=== PATIENT | male | born 1985 | race Caucasian/White ===

== ENCOUNTER 2021-01-29 12:18 | Emergency (ER) | payer OTHER ==
[2021-01-29] MEDS ORDERED: ONDANSETRON 4 MG/2 ML VIAL IVP STA (12:43)
[2021-01-29] MEDS ORDERED: HYDROmorphone 1 MG/ML CARPUJECT IVP STA (12:43)
[2021-01-29] MEDS ORDERED: SODIUM CHLORIDE 0.9% 1,000 ML IV STA (12:43)
--- NOTE | 2021-01-29 12:44 | ED Physician Documentation ---
PD HPI ABD PAIN - Stated complaint Stated Complaint: ABD PX - Chief complaint Chief Complaint: Abd Pain - History obtained from History obtained from: Patient - Additional information Additional information: 35-year-old gentleman otherwise healthy but a daily drinker presents with 3 days of central and diffuse abdominal pain associated with vomiting and diarrhea. No blood from either end. No fevers. No sick contacts or recent travel. Review of Systems Ten Systems: 10 systems reviewed and negative Constitutional: denies: Fever, Chills Cardiac: denies: Chest pain / pressure, Palpitations Respiratory: denies: Dyspnea, Cough PD PAST MEDICAL HISTORY - Present Medications Home Medications: Ambulatory Orders Medication Instructions Recorded Confirmed Dicyclomine [Bentyl] 1 - 2 tab PO QID PRN #20 cap 01/29/21 Loperamide [Imodium] 2 mg PO QID PRN #10 cap 01/29/21 Ondansetron Odt [Zofran] 4 mg TL Q6H PRN #10 tablet 01/29/21 - Allergies Allergies/Adverse Reactions: Allergies Allergy/AdvReac Type Severity Reaction Status Date / Time No Known Drug Allergies Allergy Verified 01/29/21 12:28 PD ED PE NORMAL - Vitals Vital signs reviewed: Yes - General General: Alert and oriented X 3, No acute distress - HEENT HEENT: PERRL, EOMI - Neck Neck: Supple, no meningeal sign, No bony TTP - Cardiac Cardiac: RRR, No murmur - Respiratory Respiratory: No respiratory distress, Clear bilaterally - Abdomen Abdomen: Normal bowel sounds, Soft, Other (Mild diffuse tenderness that does not seem to localize) - Back Back: No CVA TTP, No spinal TTP - Derm Derm: Normal color, Warm and dry - Neuro Neuro: Alert and oriented X 3, Normal speech Results - Vitals Vitals: Vital Signs - 24 hr 01/29/21 01/29/21 12:23 14:03 Temperature 36.4 C L Heart Rate 109 H 83 Respiratory 16 18 Rate Blood Pressure 128/74 132/104 H O2 Saturation 98 97 Oxygen O2 Source Room air - Labs Labs: Laboratory Tests 01/29/21 01/29/21 12:47 12:47 WBC 4.2 L RBC 5.23 Hgb 15.5 Hct 46.8 MCV 89.5 MCH 29.6 MCHC 33.1 RDW 11.9 L Plt Count 145 MPV 10.3 Neut # (Auto) 2.1 Lymph # (Auto) 1.5 [place] # (Auto) 0.4 Eos # (Auto) 0.1 Baso # (Auto) 0.0 Absolute Nucleated RBC 0.00 Nucleated RBC % 0.0 Sodium 137 Potassium 3.3 L Chloride 99 L Carbon Dioxide 27 Anion Gap 11.0 BUN 7 Creatinine 0.8 Estimated GFR (MDRD) 111 Glucose 102 H Calcium 9.4 Total Bilirubin 0.9 AST 89 H ALT 77 H Alkaline Phosphatase 51 Total Protein 7.8 Albumin 4.5 Globulin 3.3 Albumin/Globulin Ratio 1.4 Lipase 41 PD MEDICAL DECISION MAKING - ED course ED course: 35-year-old gentleman presents with a 3-day episode of vomiting diarrhea and abdominal pain. Fairly benign exam and CT imaging with IV contrast demonstrates what is likely to be enteritis. He does have some evidence of alcoholic liver damage on imaging and labs and he understands the need to quit alcohol. Close watchful waiting was advised. Departure - Departure Disposition: 01 Home, Self Care Clinical Impression: Vomiting, Abdominal pain, Diarrhea Condition: Good Record reviewed to determine appropriate education?: Yes Instructions: ED Diarrhea Viral Prescriptions: Dicyclomine [Bentyl] 1 - 2 tab PO QID PRN #20 cap PRN Reason: Abdominal Pain Loperamide [Imodium] 2 mg PO QID PRN #10 cap PRN Reason: Diarrhea Ondansetron Odt [Zofran] 4 mg TL Q6H PRN #10 tablet PRN Reason: Nausea / Vomiting Comments: As discussed, your labs do demonstrate some liver inflammation. Please decrease or cease alcohol use. Otherwise the CAT scan just shows probably what is ca lled an enteritis which should resolve without specific treatment over the next couple of days. Return if worsening Or if not better over the next 48 to 72 hours. Discharge Date/Time: 01/29/21 14:15
[2021-01-29 12:53] LABS: BASOPHILS % (AUTO) 0.7 %; EOSINOPHILS # (AUTO) 0.1 10^3/uL (0.0-0.7); EOSINOPHILS % (AUTO) 2.9 %; HCT - HEMATOCRIT 46.8 % (42.0-52.0); HGB - HEMOGLOBIN 15.5 g/dL (14.0-18.0); LYMPHOCYTES # (AUTO) 1.5 10^3/uL (1.5-3.5); LYMPHOCYTES % (AUTO) 36.3 %; MEAN CORPUSCULAR HEMOGLOBIN 29.6 pg (27.0-31.0); MEAN CORPUSCULAR HGB CONC 33.1 g/dL (32.0-36.0); MEAN CORPUSCULAR VOLUME 89.5 fL (80.0-94.0); MEAN PLATELET VOLUME 10.3 fL (7.4-11.4); MONOCYTES # (AUTO) 0.4 10^3/uL (0.0-1.0); MONOCYTES % (AUTO) 9.3 %; NEUTROPHILS # (AUTO) 2.1 10^3/uL (1.5-6.6); NEUTROPHILS % (AUTO) 50.6 %; PLT - PLATELET COUNT 145 10^3/uL (130-450); RED BLOOD COUNT 5.23 10^6/uL (4.70-6.10); RED CELL DISTRIBUTION WIDTH 11.9 % (12.0-15.0); WHITE BLOOD COUNT 4.2 x10^3/uL (4.8-10.8)
[2021-01-29] MEDS ORDERED: IOVERSOL 320 100 ML VIAL IVP ONE ×2 (12:59→13:37)
[2021-01-29 13:07] LABS: ALBUMIN 4.5 g/dL (3.2-5.5); ALBUMIN/GLOBULIN RATIO 1.4 (1.0-2.2); BILIRUBIN,TOTAL 0.9 mg/dL (0.2-1.0); CALCIUM 9.4 mg/dL (8.5-10.3); CREATININE 0.8 mg/dL (0.6-1.2); POTASSIUM 3.3 mmol/L (3.5-5.0); TOTAL PROTEIN 7.8 g/dL (6.7-8.2)
--- NOTE | 2021-01-29 13:57 | CT Report ---
PROCEDURE: Abdomen/Pelvis W INDICATIONS: IV only, abd jose ramon CONTRAST: IV CONTRAST: Optiray 320 ml: 100 PO CONTRAST: *NO PO CONTRAST TECHNIQUE: After the administration of 50 mL Optiray 320 contrast, 5 mm thick sections acquired from the diaphra gms to the symphysis. 5 mm thick coronal and sagittal reformats were acquired. For radiation dose r eduction, the following was used: automated exposure control, adjustment of mA and/or kV according t o patient size. COMPARISON: None. FINDINGS: Image quality: Excellent. ABDOMEN: Lung bases: No focal consolidation. Benign calcified granuloma in the right middle lobe. Heart size i s normal. Solid organs: Diffuse hypoattenuation of the liver. Normal appearance of the gallbladder, pancreas, s pleen, and adrenal glands. There is normal symmetric enhancement of the kidneys. There are subcentime ter focal cortical hypodensity in the inferior left kidney which is too small to characterize further but statistically likely represents a simple cyst. Peritoneum and bowel: No small bowel obstruction. Mild mucosal thickening of the ascending colon. Nor mal appendix. No free fluid or air. Nodes and vessels: No retroperitoneal or mesenteric adenopathy by size criteria. Aorta and inferior vena cava are normal in size. Miscellaneous: No ventral hernias. PELVIS: Genitourinary: Bladder wall thickness is normal. Miscellaneous: No inguinal hernias or adenopathy. Bones: No suspicious bony lesions. No vertebral body compression fractures. Bilateral pars defects with minimal grade 1 anterolisthesis. IMPRESSION: 1. Mild mucosal thickening of the ascending colon, suggestive of infectious versus inflammatory colit is. 2. Hepatic steatosis. Reviewed by: Denis Card on 01/29/2021 12:56 PM AKASTRID Approved by: Denis Card on 01/29/2021 12:56 PM AKDT Station ID: [id number]
[2021-01-29 14:06] VITALS: BP 132/104
== END 2021-01-29 14:15 | disposition home or self-care (01) ==
LOC: ED 12:18
DX: R11.10 Vomiting, unspecified (principal); R10.84 Generalized abdominal pain; R19.7 Diarrhea, unspecified; K70.9 Alcoholic liver disease, unspecified; F10.10 Alcohol abuse, uncomplicated
CPT/HCPCS: 36415; 74177; 80053; 83690; 85025; 96361; 96374; 96375; 99283; 99284; J1170; Q9967

== ENCOUNTER 2022-01-28 11:34 | Emergency (ER) | payer OTHER ==
--- OUTSIDE RECORDS SUMMARY | 2022-01-28 11:58 | EXTERNAL MEDICAL SUMMARY RPT | Continuity of Care Document ---
:1985 Author Organization [facility] Address [address] [place] [address] Phone Allergies No information. Encounters No information. Medications No information. Problems date description facility [id number] shoulder pn [employer] Results No information.
[2022-01-28] MEDS ORDERED: KETOROLAC 60 MG/2 ML VIAL IM STA (12:30)
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
--- NOTE | 2022-01-28 12:53 | XRAY Report ---
PROCEDURE: Shoulder 3 View RT INDICATIONS: pain with movement TECHNIQUE: 3 views of the shoulder were acquired. COMPARISON: None. FINDINGS: Bones: Nondisplaced fracture of the greater tuberosity noted. Moderate humeral joint space and narrow ing. Normal bone mineralization present. Soft tissues: No suspicious soft tissue calcifications. IMPRESSION: Nondisplaced greater tuberosity fracture Reviewed by: Cosme Torres MD on 01/28/2022 11:51 AM JEFF Approved by: Cosme Torres MD on 01/28/2022 11:51 AM AKDT Station ID: [id number]
[2022-01-28 13:13] VITALS: BP 123/74
== END 2022-01-28 13:12 | disposition home or self-care (01) ==
LOC: ED 11:34
DX: S42.254A Nondisplaced fracture of greater tuberosity of right humerus, initial encounter for closed fracture (principal); W22.01XA Walked into wall, initial encounter; Y93.89 Activity, other specified; F17.200 Nicotine dependence, unspecified, uncomplicated
CPT/HCPCS: 96372; 99283